=== PATIENT | female | born 1950 | race Caucasian/White ===

== ENCOUNTER 2016-08-13 15:39 | Emergency (ER) | payer MEDICARE ==
[2016-08-13] MEDS ORDERED: ASPIRIN 81 MG CHEWABLE TABLET PO ONE (15:56)
--- NOTE | 2016-08-13 15:58 | Emergency Department Record ---
History of Present Illness - General Chief Complaint: Chest Pain Stated Complaint: CHEST PAIN Time Seen by Provider: 08/13/16 15:52 Source: Patient Mode of Arrival: Ambulatory - History of Present Illness Initial Comments: Patient states sharp left anterior chest pain and radiation into the left shoulder and SOB going up one flight of steps and gradually worse. Heart cath 2 years ago through [facility] maybe at [facility] Onset/Timin -: Hour(s) Onset: During rest Pain Location: Left chest Severity: Moderate Severity scale (1-10): 10 Quality: Aching, Heaviness, Sharp, Tightness Consistency: Now resolved - Related Data Home Medications Medication Instructions Recorded Confirmed Last Taken Aspirin Chewable 81 mg PO DAILY 09/30/13 03/22/15 1 Day Ago ~08/12/16 Diphenhydramine HCl [Benadryl] 50 mg PO QHS 09/30/13 03/22/15 1 Day Ago ~08/12/16 Levothyroxine Sodium [Synthroid] 224 mcg PO DAILY 09/30/13 03/22/15 1 Day Ago ~08/12/16 Loratadine [Claritin] 10 mg PO DAILY 09/30/13 03/22/15 1 Day Ago ~08/12/16 Metoprolol Tartrate [Metoprolol 25 mg PO BID 09/30/13 03/22/15 1 Day Ago Tartrate] ~08/12/16 Vit W-Ca,Fe,FA(<1 mg) 1 each PO DAILY 09/11/14 03/22/15 1 Day Ago [ Vitamins] ~08/12/16 Allergies Allergy/AdvReac Type Severity Reaction Status Date / Time hydrocodone Allergy Intermediate VOMITING Verified 08/13/16 15:49 morphine Allergy Intermediate HEADACHE Verified 08/13/16 15:49 loratadine [From Claritin-D] AdvReac Intermediate RAPID Verified 08/13/16 15:49 HEART RATE pseudoephedrine sulfate AdvReac Intermediate RAPID Verified 08/13/16 15:49 [From Claritin-D] HEART RATE Travel Screening - Travel/Exposure Within Last 30 Days Have you traveled within the last 30 days?: No - Travel/Exposure Within Last Year Have you traveled outside the [place] in the last year?: No - Additonal Travel Details Have you been exposed to anyone with a communicable illness?: No - Travel Symptoms Symptom Screening: None Review of Systems Reviewed: No additional complaints except as noted below Constitutional: Reports: As per HPI. Denies: Chills, Fever, Malaise, Night sweats, Weakness, Weight change Eyes: Reports: As per HPI. Denies: Eye discharge, Eye pain, Photophobia, Vision change ENT: Reports: As per HPI. Denies: Congestion, Dental pain, Ear pain, Epistaxis , Hearing loss, Throat pain Respiratory: Reports: As per HPI. Denies: Cough, Dyspnea, Hemoptysis, Stridor, Wheezes Cardiovascular: Reports: As per HPI, Chest pain. Denies: Arrhythmia, Dyspnea on exertion, Edema, Murmurs, Orthopnea, Palpitations, Paroxysmal nocturnal dyspnea, Rheumatic Fever, Syncope Endocrine: Reports: As per HPI. Denies: Fatigue, Heat or cold intolerance, Polydipsia, Polyuria Gastrointestinal: Reports: As per HPI. Denies: Abdominal pain, Constipation, Diarrhea, Hematemesis, Hematochezia, Melena, Nausea, Vomiting Genitourinary: Reports: As per HPI. Denies: Abnormal menses, Discharge, Dyspareunia, Dysuria, Frequency, Hematuria, Incontinence, Retention, Urgency Musculoskeletal: Reports: As per HPI. Denies: Arthralgia, Back pain, Gout, Joint swelling, Myalgia, Neck pain Skin: Reports: As per HPI. Denies: Bruising, Change in color, Change in hair/ nails, Lesions, Pruritus, Rash Neurological: Reports: As per HPI. Denies: Abnormal gait, Confusion, Headache, Numbness, Paresthesias, Seizure, Tingling, Tremors, Vertigo, Weakness Psychiatric: Reports: As per HPI. Denies: Anxiety, Auditory hallucinations, Depression, Homicidal thoughts, Suicidal thoughts, Visual hallucinations Hematological/Lymphatic: Reports: As per HPI. Denies: Anemia, Blood Clots, Easy bleeding, Easy bruising, Swollen glands Past Medical History - SOCIAL HISTORY Smoking Status: Never smoker Alcohol Use: None Drug Use: None - RESPIRATORY Hx Respiratory Disorders: No - CARDIOVASCULAR Hx Cardio Disorders: Yes Hx Abnormal EKG: (LBB) Hx Cardiac Cath: Yes (2015, [facility] Dr Evans) Comment:: Mitral Valve Prolapse (Block) - NEURO Hx Neuro Disorders: Yes Hx Headaches: Yes - GI Hx GI Disorders: Yes Hx Diverticulitis: Yes - Hx Genitourinary Disorders: No - ENDOCRINE Hx Endocrine Disorders: Yes Hx Thyroid Disease: Yes - MUSCULOSKELETAL Hx Musculoskeletal Disorders: Yes Hx Arthritis: Yes Hx Back Injury: Yes Hx Fibromyalgia: Yes - PSYCH Hx Psych Problems: No - HEMATOLOGY/ONCOLOGY Hx Hematology/Oncology Disorders: Yes Comment:: IGA antibody deficiency Family Medical History Any Significant Family History?: Yes Hx Heart Disease: Brother/Sister Hx Stroke: Father, Mother Physical Exam - General General Appearance: Alert, Oriented x3, Cooperative, No acute distress - Head Head exam: Normal inspection - Eye Eye exam: Normal appearance, PERRL Pupils: Normal accommodation - ENT ENT exam: Normal exam, Mucous membranes moist, Normal external ear exam, Normal orophraynx, TM's normal bilaterally Ear exam: Normal external inspection. negative: External canal tenderness Nasal Exam: Normal inspection. negative: Discharge, Sinus tenderness Mouth exam: Normal external inspection, Tongue normal Teeth exam: Normal inspection. negative: Dental caries Throat exam: Normal inspection. negative: Tonsillar erythema, Tonsillar exudate - Neck Neck exam: Normal inspection, Full ROM. negative: Tenderness - Respiratory Respiratory exam: Normal lung sounds bilaterally. negative: Respiratory distress - Cardiovascular Cardiovascular Exam: Regular rate, Normal rhythm, Normal heart sounds - GI/Abdominal GI/Abdominal exam: Soft, Normal bowel sounds. negative: Tenderness - Rectal Rectal exam: Deferred - exam: Deferred - Extremities Extremities exam: Normal inspection, Full ROM, Normal capillary refill. negative: Tenderness - Back Back exam: Reports: Normal inspection, Full ROM. Denies: Muscle spasm, Rash noted, Tenderness - Neurological Neurological exam: Alert, Normal gait, Oriented X3, Reflexes normal - Psychiatric Psychiatric exam: Normal affect, Normal mood - Skin Skin exam: Dry, Intact, Normal color, Warm Course Vital Signs 08/13/16 15:40 Temperature 99.1 F Pulse Rate 106 H Respiratory 16 Rate Blood Pressure 167/82 Pulse Ox 96 - Reevaluation(s) Reevaluation #1: transfer to [facility] 08/13/16 17:47 Reevaluation #2: discussed case with Dr. Patel and will transfer to [facility] for nephrology and [facility] cardiology and V Q scan 08/13/16 18:14 Medical Decision Making - Data Complexity MDM Data: Labs Ordered and/or Reviewed (creat. 3.2, bun39), X-Ray Ordered and/ or Reviewed (stable chest ,hyperinflation and chronic interstitual changes), EKG Ordered and/or Reviewed (LBBB ,NSR same as previous on 06/2013) - Lab Data Result diagrams: 08/13/16 16:05 08/13/16 16:05 Disposition Clinical Impression: Elevated d-dimer Chest pain Qualifiers: Chest pain type: unspecified Qualified Code(s): R07.9 - Chest pain, unspecified Renal failure Qualifiers: Renal failure chronicity: acute Acute renal failure type: unspecified Qualified Code(s): N17.9 - Acute kidney failure, unspecified Disposition: Acute Care Hospital Transfer Condition: (2) Stable Additional [facility] Forms: Patient Portal Access Time of Disposition: 17:48
[2016-08-13 16:35] LABS: BASO % 0.4 % (0-6); EOS % 1.6 % (0-6); GRAN % 66.6 % (47-80); HEMATOCRIT 37.9 % (35.0-47.0); HEMOGLOBIN 12.4 gm/dl (11.6-16.0); LYMPH % 16.7 % (16-45); MEAN CELL VOLUME 86.7 fl (81-97); MEAN CORPUSCULAR HEMOGLOBIN 28.4 pg (27-33); MEAN CORPUSCULAR HGB CONC 32.7 g/dl (32-36); MEAN PLATELET VOLUME 9.1 fl (7.4-10.4); MONO % 14.7 % (0-9); PLATELET COUNT 549 K/uL (130-400); RED BLOOD COUNT 4.37 M/uL (3.80-5.40); RED CELL DISTRIBUTION WIDTH 13.7 % (11.5-14.5); WHITE BLOOD COUNT W/O DIFF 5.5 K/uL (4.2-12.2)
[2016-08-13 16:45] LABS: ANION GAP 7.9 (7-16); BLOOD UREA NITROGEN 39 mg/dL (7-17); CARBON DIOXIDE 29.1 mmol/L (22-30); CREATININE 3.2 mg/dL (0.52-1.04); EST GLOMERULAR FILTRATION RATE 15 ml/min; GLUCOSE,RANDOM 104 mg/dL (70-110)
[2016-08-13 16:48] LABS: PARTIAL THROMBOPLASTIN TIME 28.7 SECONDS (24.5-39.1)
[2016-08-13 16:56] LABS: CKMB 4.9 ng/mL (0-4.3)
[2016-08-13 16:59] LABS: TROPONIN I < 0.012 ng/mL (0.00-0.034)
[2016-08-13 17:00] LABS: D-DIMER 0.6 mg/L FEU (0-0.59)
[2016-08-13 17:04] LABS: CREATINE PHOSPHOKINASE 136 U/L (30-135)
[2016-08-13 18:30] LABS: URINE APPEARANCE CLEAR; URINE BILIRUBIN NEGATIVE (NEGATIVE); URINE BLOOD SMALL (NEGATIVE); URINE COLOR YELLOW; URINE GLUCOSE (UA) NEGATIVE (NEGATIVE); URINE KETONE NEGATIVE (NEGATIVE); URINE LEUKOCYTE ESTERASE NEGATIVE (NEGATIVE); URINE NITRITE NEGATIVE (NEGATIVE); URINE PROTEIN NEGATIVE (NEGATIVE); URINE UROBILINOGEN 0.2 E.U./dL (0.20 - 1.00)
[2016-08-13 18:41] LABS: URINE AMORPHOUS SEDIMENT 1+; URINE EPITHELIAL CELLS 0 - 2 (FEW); URINE WBC 0 - 2 (0-2/hpf)
== END 2016-08-13 19:14 | disposition short-term general hospital (02) ==
LOC: ER 15:39
DX: R07.89 Other chest pain (principal); R79.89 Other specified abnormal findings of blood chemistry; N17.9 Acute kidney failure, unspecified; R06.02 Shortness of breath; E11.9 Type 2 diabetes mellitus without complications; Z98.61 Coronary angioplasty status; Z79.84 Long term (current) use of oral hypoglycemic drugs
CPT/HCPCS: 71020; 80048; 81001; 82550; 82553; 84443; 84484; 85025; 85379; 85730; 93005; 93010; 99285

== ENCOUNTER 2018-05-31 08:57 | Emergency (ER) | payer MEDICARE, OTHER ==
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
[2018-05-31] MEDS ORDERED: ONDANSETRON HCL IV 4 MG/2 ML VIAL IVP ONE (09:48)
[2018-05-31] MEDS ORDERED: HYDROMORPHONE HCL 2 MG/ML VIAL IVP ONE ×2 (09:48→10:41)
[2018-05-31 09:49] LABS: BASO % 0.2 % (0-6); EOS % 1.8 % (0-6); GRAN % 76.2 % (47-80); HEMATOCRIT 40.5 % (35.0-47.0); LYMPH % 15.4 % (16-45); MEAN CELL VOLUME 92.5 fl (81-97); MEAN CORPUSCULAR HEMOGLOBIN 29.7 pg (27-33); MEAN CORPUSCULAR HGB CONC 32.1 g/dl (32-36); MEAN PLATELET VOLUME 9.6 fl (7.4-10.4); MONO % 6.4 % (0-9); PLATELET COUNT 360 K/uL (130-400); RED BLOOD COUNT 4.38 M/uL (3.80-5.40); WHITE BLOOD COUNT W/O DIFF 9.7 K/uL (4.2-12.2)
[2018-05-31 10:13] LABS: BLOOD UREA NITROGEN 23 mg/dL (8-23); CREATININE 1.4 mg/dL (0.5-0.9); EST GLOMERULAR FILTRATION RATE 40 mL/min
[2018-05-31 10:16] LABS: GLUCOSE,RANDOM 94 mg/dL (74-109)
[2018-05-31 10:19] LABS: CREATINE PHOSPHOKINASE 150 U/L (26-192)
[2018-05-31 10:37] LABS: PROTHROMBIN TIME (PATIENT) 9.8 SECONDS (9.5-12.1)
[2018-05-31 10:49] LABS: URINE APPEARANCE SL CLOUDY; URINE BILIRUBIN NEGATIVE (NEGATIVE); URINE BLOOD NEGATIVE (NEGATIVE); URINE COLOR YELLOW; URINE GLUCOSE (UA) NEGATIVE (NEGATIVE); URINE KETONE NEGATIVE (NEGATIVE); URINE LEUKOCYTE ESTERASE TRACE (NEGATIVE); URINE NITRITE POSITIVE (NEGATIVE); URINE PROTEIN NEGATIVE (NEGATIVE); URINE UROBILINOGEN 0.2 E.U./dL (0.20 - 1.00)
[2018-05-31 10:59] LABS: URINE BACTERIA 3+; URINE EPITHELIAL CELLS 0 - 2 (FEW); URINE RBC NONE SEEN (NONE SEEN); URINE WBC 0 - 2 (0-2/hpf)
[2018-05-31] MEDS ORDERED: ENOXAPARIN 100 MG/ML SYR SQ ONE (11:18)
--- NOTE | 2018-06-01 10:24 | RADIOLOGY REPORT ---
EXAM: CHEST, TWO VIEWS HISTORY: BACK PAIN. TECHNIQUE: Two views of the chest were obtained. Comparison: Chest radiograph 08/13/16. FINDINGS: The cardia silhouette is within normal size limits. The thoracic aorta is calcified and mildly tortuous. No focal pulmonary consolidation. No pleural effusion or pneumothorax. No acute osseous findings. Scattered thoracic spondylosis. IMPRESSION: NO ACUTE CHEST FINDINGS. JOB NUMBER: [id number] MTDD
== END 2018-05-31 11:40 | disposition short-term general hospital (02) ==
LOC: ER 08:57
DX: M54.6 Pain in thoracic spine (principal); R07.1 Chest pain on breathing; R79.89 Other specified abnormal findings of blood chemistry; I31.0 Chronic adhesive pericarditis; I10 Essential (primary) hypertension
CPT/HCPCS: 99285 ×2; 96374; 96372; 96375; 82550; 85025; 85730; 85610; 82553; 80048; 81001; 84484; 85379; 71046; 93005; 93010; J2405; J1170; J1650

== ENCOUNTER 2018-12-15 21:17 | Emergency (ER) | payer MEDICARE, OTHER ==
[2018-12-15] MEDS ORDERED: ACETAMINOPHEN 1,000 MG/100 ML BTL IVPB ONE (21:35)
--- NOTE | 2018-12-15 21:41 | Emergency Department Record ---
History of Present Illness - General Chief Complaint: Neck Injury/Pain Stated Complaint: L SIDE NECK PAIN Time Seen by Provider: 12/15/18 21:22 Source: Patient Mode of Arrival: Ambulatory Limitations: No limitations - History of Present Illness Initial Comments: The patient is here due to waking up this AM with L shoulder and neck pain. The shoulder pain has resolved but the neck pain is now worsening. It increases with any head movement or ROM. She does have a mild occipital HIGHTOWER but no arm or leg numbness, weakness, or any CP or SOB. MD Complaint: Neck pain Onset/Timin -: Days(s) Place: Home Radiation: Occiput Severity: Moderate Severity scale (1-10): 5 Quality: Other Consistency: Intermittent Improves With: Remaining still Worsens With: Movement of neck Context: Other Associated Symptoms: None Treatments Prior to Arrival: Acetaminophen, Ibuprofen, Prescription pain med - Related Data Home Medications Medication Instructions Recorded Confirmed Last Taken Methocarbamol [Robaxin] 1 tab PO TID 12/15/18 12/15/18 12/15/18 Previous Rx's Medication Instructions Recorded Acetaminop W/ Codeine 300/30Mg 1 tab PO Q6H #12 tab 12/15/18 [Tylenol #3] Allergies Allergy/AdvReac Type Severity Reaction Status Date / Time hydrocodone Allergy Intermediate VOMITING Verified 08/13/16 15:49 morphine Allergy Intermediate HEADACHE Verified 08/13/16 15:49 loratadine [From Claritin-D] AdvReac Intermediate RAPID Verified 08/13/16 15:49 HEART RATE pseudoephedrine sulfate AdvReac Intermediate RAPID Verified 08/13/16 15:49 [From Claritin-D] HEART RATE Travel Screening - Travel/Exposure Within Last 30 Days Have you traveled within the last 30 days?: No - Travel Symptoms Symptom Screening: None Review of Systems Constitutional: Denies: Chills, Fever Eyes: Denies: Eye discharge ENT: Denies: Congestion, Other Respiratory: Denies: Dyspnea Cardiovascular: Denies: Arrhythmia, Chest pain Endocrine: Denies: Fatigue Gastrointestinal: Denies: Nausea Genitourinary: Denies: Dysuria Musculoskeletal: Denies: Arthralgia Skin: Denies: Bruising Past Medical History - SOCIAL HISTORY Smoking Status: Never smoker Alcohol Use: Rare Drug Use: None - RESPIRATORY Hx Respiratory Disorders: Yes Hx Pneumonia: Yes Comment:: sarcoidosis - CARDIOVASCULAR Hx Cardio Disorders: Yes Hx Abnormal EKG: Yes (LBBB) Hx Cardiac Cath: Yes (2014, [facility] Dr Evans) Hx Hypertension: Yes Comment:: Mitral Valve Prolapse (Block), stenosis of mitral valve - NEURO Hx Neuro Disorders: Yes Hx Headaches: Yes - GI Hx GI Disorders: Yes Hx Diverticulitis: Yes - Hx Genitourinary Disorders: Yes Hx Renal Disease: Yes (kidney failure) - ENDOCRINE Hx Endocrine Disorders: Yes Hx Diabetes: No Hx Thyroid Disease: Yes ([place]) - MUSCULOSKELETAL Hx Musculoskeletal Disorders: Yes Hx Arthritis: Yes (RA) Hx Back Injury: Yes Hx Fibromyalgia: Yes - PSYCH Hx Psych Problems: No - HEMATOLOGY/ONCOLOGY Hx Hematology/Oncology Disorders: Yes Comment:: IGA antibody deficiency Family Medical History Any Significant Family History?: Yes Hx Heart Disease: Brother/Sister Hx Stroke: Father, Mother Physical Exam - General General Appearance: Alert, Oriented x3, Cooperative, No acute distress - Head Head exam: Atraumatic, Normocephalic - Eye Eye exam: Normal appearance, PERRL - Neck Neck exam: Normal inspection, Full ROM, Tenderness (The pain is 100% reproducible with palpation over the L posterior cervical muscles.). negative: Lymphadenopathy, Meningismus - Respiratory Respiratory exam: Normal lung sounds bilaterally. negative: Respiratory distress - Cardiovascular Cardiovascular Exam: Regular rate, Normal rhythm, Normal heart sounds - GI/Abdominal GI/Abdominal exam: Soft, Normal bowel sounds. negative: Tenderness - Extremities Extremities exam: Normal inspection, Full ROM, Normal capillary refill. negative: Tenderness Image of Full Body: 1 - Area of pain and reproducible tenderness. - Neurological Neurological exam: Alert, Normal gait. negative: Abnormal gait, Altered, Motor sensory deficit Course Vital Signs 12/15/18 21:23 Temperature 98.7 F Pulse Rate [ 77 Left] Respiratory 16 Rate Blood Pressure 141/88 [Left] Pulse Ox 98 - Reevaluation(s) Reevaluation #1: The patient is doing much better at this time. She is able to lay back with much less pain and does have increased ROM of her neck. I did discuss the lab results with the patient and the need to F/U with her PCP. 12/15/18 22:26 Medical Decision Making - Data Complexity MDM Data: Labs Ordered and/or Reviewed - Lab Data Result diagrams: 12/15/18 21:55 12/15/18 21:55 Disposition Disposition: Discharge Clinical Impression: Cervical paraspinal muscle spasm Disposition: Home, Self-Care Condition: (2) Stable Instructions: Cervical Strain (ED) Additional Instructions: Please continue your regular medicines and please take the Tylenol # 3 for pain. Please see your family doctor for recheck next week and return to the ER for any worsening issues. Prescriptions: Acetaminop W/ Codeine 300/30Mg [Tylenol #3] 1 tab PO Q6H #12 tab Forms: Patient Portal Access Time of Disposition: 22:30 Quality - Quality Measures Quality Measures: N/A - Blood Pressure Screening View Details: Yes Does Patient Have Any of the Following: No Blood Pressure Classification: Pre-Hypertensive BP Reading Systolic Measurement: 141 Diastolic Measurement: 88 Screening for High Blood Pressure: < Pre-Hypertensive BP, F/U Documented > [G8950] Pre-Hypertensive Follow-up Interventions: Referral to alternative/primary care provider.
[2018-12-15 22:01] LABS: ABSOLUTE NEUTROPHIL COUNT 5.48; BASO % 0.3 % (0-6); EOS % 2.3 % (0-6); GRAN % 73.1 % (47-80); HEMATOCRIT 38.9 % (35.0-47.0); HEMOGLOBIN 12.2 gm/dl (11.6-16.0); MEAN CORPUSCULAR HEMOGLOBIN 28.8 pg (27-33); MEAN CORPUSCULAR HGB CONC 31.4 g/dl (32-36); MEAN PLATELET VOLUME 9.4 fl (7.4-10.4); MONO % 9.3 % (0-9); PLATELET COUNT 322 K/uL (130-400); RED BLOOD COUNT 4.23 M/uL (3.80-5.40); RED CELL DISTRIBUTION WIDTH 13.3 % (11.5-14.5); WHITE BLOOD COUNT W/O DIFF 7.5 K/uL (4.2-12.2)
[2018-12-15 22:10] LABS: BILIRUBIN,TOTAL 0.2 mg/dL (0.2-1.0); CREATININE 1.5 mg/dL (0.5-0.9)
[2018-12-15 22:15] LABS: ALB/GLOB RATIO 1.7 (1.1-1.8); ALBUMIN 4.4 g/dL (4.0-5.0)
== END 2018-12-15 22:37 | disposition home or self-care (01) ==
LOC: ER 21:17
DX: M62.830 Muscle spasm of back (principal); M25.512 Pain in left shoulder; R51 Headache; I10 Essential (primary) hypertension
CPT/HCPCS: 80053; 85025; 96365; 99284

== ENCOUNTER 2019-03-01 11:32 | Day surgery (SDC) | payer MEDICARE, OTHER ==
--- NOTE | 2019-03-01 07:36 | History and Physical - [place] ---
CHIEF COMPLAINT/HISTORY OF CHIEF COMPLAINT: This patient presents with a history of an intractable lumbar radiculopathy. Due to the failure of therapy, a spinal cord stimulator trial was conducted with 75-85% pain control. Due to the failure of all therapies and the success of the trial, the patient presents for implantation of a permanent system. PAST MEDICAL HISTORY: Hypothyroidism, sleep apnea, sarcoidosis, cardiac valvular disease, degenerative arthritis, and fibromyalgia. PAST SURGICAL HISTORY: Tubal ligation, hysterectomy, gallbladder surgery, and total knee surgery. 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 MEDICATIONS ON ADMISSION: List to be provided. No blood thinners. ALLERGIES: None. FAMILY/PSYCHOSOCIAL HISTORY: Social history - Social alcohol and caffeine. Family history - Diabetes, coronary artery disease, hypertension, and cancer. SYSTEMS REVIEW: The patient is appropriate in no acute distress. PHYSICAL EXAMINATION: Height is 5'6", weight is 260. No vital signs. HEENT: Within normal limits. LUNGS: Clear. HEART: Rapid and regular. ABDOMEN: Nontender. MUSCULOSKELETAL: Examination of the musculoskeletal system shows diffuse tenderness lumbar spine. Range of motion does produce pain into both legs, somewhat more left than right. There are no motor or sensory abnormalities although there is some suggestion of weakness to the left leg. Ambulation - No assistive device utilized. NEUROLOGIC: Cranial nerves are intact. IMPRESSION: LUMBAR RADICULOPATHY, ICD-10 CODE M54.16 AND M54.17. PLAN: The patient is here for implantation of a permanent spinal cord stimulator after a successful trial and the failure of all other therapies. The procedure will be considered outpatient although an overnight stay will be evaluated. The potential risks and complications have all been reviewed and discussed. She was put in contact with a clinical specialist who also explained the procedure and the risks. JOB NUMBER: [id number] MTDD
[~2019-03-01 11:32] MED LIST: CEFAZOLIN 1 Gram 1 GM/50 ML BAG IVPB ONE; CEFAZOLIN 2 Gram 2 GM/50 ML BAG IVPB ONE
[2019-03-01] MEDS ORDERED: FENTANYL PF 100MCG/2ML VIAL IV ONE (11:33)
[2019-03-01] MEDS ORDERED: LIDOCAINE 2% MDV (20MG/ML) 20ML VIAL IV ONE (11:33)
[2019-03-01] MEDS ORDERED: *PACU ONLY* KETAMINE HCL 10 MG/ML (20ML) VIAL IV ONE (11:33)
[2019-03-01] MEDS ORDERED: PROPOFOL 10 MG/ML VIAL IV ONE (11:33)
[2019-03-01] MEDS ORDERED: MIDAZOLAM HCL 2MG/2ML VIAL IV ONE (11:33)
[2019-03-01] MEDS: MECLIZINE 25 MG TABLET PO ONE (11:47)
[2019-03-01] MEDS: METOCLOPRAMIDE 10 MG TABLET PO ONE (11:48)
[2019-03-01] MEDS: FAMOTIDINE 20MG TABLET PO ONE (11:48)
[2019-03-01] MEDS: 0.9 % SODIUM CHLORIDE 1000ML 1,000 ML IV ONE (12:00)
[2019-03-01] MEDS: VANCOMYCIN 1GM/200ML PREMIX 1 GM/200 ML PIGGYBACK IVPB ONE (12:09)
[2019-03-01] MEDS: ACETAMINOPHEN 1,000 MG/100 ML BTL IVPB ONE (13:12)
[2019-03-01] MEDS: LIDOCAINE 1% W/EPI 1:100,000 MDV 20 ML VIAL SQ ONE (14:04)
[2019-03-01] MEDS: BUPIVACAINE 0.5% W/EPI MPF 30 ML VIAL SQ ONE (14:04)
[2019-03-01] MEDS: CEFAZOLIN 1G VIAL IR ONE (14:05)
[2019-03-01] MEDS: OXYCODONE/APAP 10MG-325MG TABLET PO ONE (14:54)
--- NOTE | 2019-03-04 07:45 | Operative Note - Ferro ---
DATE OF SURGERY: 03/01/2019 PREOPERATIVE DIAGNOSIS: LUMBAR RADICULOPATHY, ICD-10 CODE M54.16 AND M54.17. OPERATION: 1. FLUOROSCOPICALLY GUIDED LEFT EPIDURAL ACCESS T11-T12, PLACEMENT OF SPINAL CORD STIMULATOR LEAD 1 [employer] 16, 6-ELECTRODES POSITIONED LEFT T7. 2. FLUOROSCOPICALLY GUIDED EPIDURAL ACCESS LEFT T12-L1, PLACEMENT OF SPINAL CORD STIMULATOR LEAD 2 [employer] 16, 6-ELECTRODES POSITIONED RIGHT T7. 3. COMPLEX PROGRAMMING OF LEAD 1 OVER TWENTY MINUTES FOLLOWED BY COMPLEX PROGRAMMING OF LEAD 2 OVER TWENTY MINUTES. 4. INCISION, SUBCUTANEOUS DISSECTION, ANCHORING OF LEAD 1 AND LEAD 2 TO SUPRASPINOUS FASCIA WITH A [employer] LOCKING ANCHOR NONABSORBABLE SUTURE. 5. INCISION, SUBCUTANEOUS DISSECTION, CREATION OF SUBCUTANEOUS POUCH AT RIGHT POSTERIOR GLUTEAL MARGIN FOR PLACEMENT OF GENERATOR [employer] PROGRAMM[employer] RECHARGEABLE WAVEWRITER. 6. TUNNELLING BETWEEN POUCHES, PLACEMENT OF EXTERNAL PORTION OF LEAD 1 AND LEAD 2 INTO GENERATOR POUCH, EACH LEAD INTERFACES WITH GENERATOR. 7. PLACEMENT OF LEADS INTO POUCH, CLOSURE OF BOTH INCISIONS STRATAFIX SUTURE 2- 0 FASCIA AND 3-0 SKIN. DERMABOND CLOSURE APPROXIMATING THE EDGES OF WOUNDS. 8. COMPLEX RECOVERY ROOM PROGRAMMING INTERNAL GENERATOR HOME USE TWO STIMULATORS TWENTY MINUTES. SURGEON: Dony Ojeda D.O. ANESTHESIA: Local sedation. ANESTHESIA PROVIDER: KEVIN De La Cruz CRNA INDICATION: This patient presents with a history of intractable lumbar radiculopathy. Due to the failure of all therapies, a spinal cord stimulator trial was conducted with 75+% pain control. Due to the failure of therapy and the success of the trial, the patient presents today for implantation of a permanent system. PROCEDURE: Intravenous line, vital sign monitoring, IV sedation, prepped and draped, sterile technique. Under imaging the epidural interspace at T11-T12 and T12-L1 were identified and marked from the left, the skin was infiltrated with local, two separate curved Epimed needles with loss of resistance into the space at T11-T12, spinal cord stimulator Lead 1 [employer] 16, 6- electrodes positioned left of midline at T7 with the access at T12-L1. Both access points were atraumatic. No blood. No CSF. At T12-L1 the spinal cord stimulator Lead 2 [employer] 16, 6-electrodes was positioned right at T7. Complex programming of Lead 1 over twenty minutes followed by complex programming of Lead 2 over twenty minutes resulting in pattern stimulation across the back into the legs. The patient indicated we hit all of the areas of her pain. The skin below both needles was infiltrated with local, a nonabsorbable suture as pursestring was used to secure each anchor to the deep supraspinous fascia after the incision was made and the pouch was formed. At the right posterior gluteal margin a site picked by the patient for the generator the skin was infiltrated, incision made, and subcutaneous dissection was conducted to form a pouch of suitable size and depth for the generator, a [employer] programmable rechargeable WaveWriter. A tunnelling tool was used to carry the leads into the generator pouch and then each lead was interfaced with the generator. Antibiotic irrigation, Bovie for hemostasis. The leads were placed into the pouch, the generator was placed into its own pouch, and then both incisions were closed using Stratafix suture 2-0 fascia and 3-0 skin. Dermabond closure was then used to approximate the edges of both wounds. She was transferred to the Recovery Room stable. There were side effects from the procedure or sedation. When fully awake and alert complex programming was performed over twenty minutes re-establishing stimulation pain control over all of the appropriate areas. She was requesting discharge home. DISCHARGE INSTRUCTIONS: 1. The sites will remain clean and dry. No showering or bathing in any way that would disrupt the dressings, if it happens contact the clinic. 2. Standard medications resumed including the antibiotic Levaquin, she will take 500 mg once a day for fourteen days. 3. Office to contact the patient in the next 12-24 hours to set up a time in 7- 10 days for us to evaluate the sites, until then she is to keep her activities low. All other instructions are provided. Numbers to contact if problems given. She was then discharged. 4. She was provided with a script for antibiotics and a script for pain control prn. JOB NUMBER: [id number] [facility]
--- NOTE | 2019-03-04 15:34 | RADIOLOGY REPORT ---
EXAMINATION: Lumbar Spine Single View EXAM DATE: 03/01/2019 2:23 PM TECHNIQUE: Lateral view INDICATION: S/P SCS IMPLANT LEADS AND GENERATOR COMPARISON: Thoracolumbar radiographs 02/05/2019 ENCOUNTER: Initial FINDINGS: Placement of left flank battery pack with spinal leads extending to the T6-T8 level with removal of p reviously present lesions. Laterality marker over the right upper abdomen obscuring previously shown surgical clips. Lower lumbar facet arthrosis, left greater than right and most advanced at L4-L5 and L5-S1. IMPRESSION: Lead placement to the midthoracic spine. Dictated by: Boone Sarkar MD on 03/04/2019 3:30 PM. .
== END 2019-03-01 15:00 | disposition home or self-care (01) ==
LOC: SUR 11:32
PROVIDERS: ATTEND Pain Medicine Interventional Pain Medicine
DX: M54.16 Radiculopathy, lumbar region (principal); M54.17 Radiculopathy, lumbosacral region; I44.7 Left bundle-branch block, unspecified; I10 Essential (primary) hypertension; I34.1 Nonrheumatic mitral (valve) prolapse; N18.3 Chronic kidney disease, stage 3 (moderate); E06.3 Autoimmune thyroiditis; G47.33 Obstructive sleep apnea (adult) (pediatric)
CPT/HCPCS: 72020; 95972; C1820; C1883; J0690; J3370; J7030